=== PATIENT | female | born 1965 | race Caucasian/White ===

== ENCOUNTER → 2016-08-18 | Outpatient (CLI) | payer OTHER ==
--- NOTE | 2016-08-18 09:39 | DX ---
Right Elbow, 3 Views Indication: Pain since June. Findings: The bones are anatomically aligned. No fracture, bone lesion, effusion, or joint space ab normality. No marginal erosions or osteophytes. Impression: Normal. No fracture, effusion, or arthropathy.
== END ==
LOC: BMCIMAGING 09:13
PROVIDERS: ATTEND Family Medicine
DX: M25.521 Pain in right elbow (principal)

== ENCOUNTER → 2016-12-03 | Outpatient (CLI) | payer OTHER | LOC: FIMAGING 10:52 | PROVIDERS: ATTEND Obstetrics & Gynecology | DX: Z12.31 Encounter for screening mammogram for malignant neoplasm of breast (principal) | CPT/HCPCS: G0202 ==

== ENCOUNTER → 2017-01-05 | Outpatient (CLI) | payer OTHER | LOC: FIMAGING 12:03 | PROVIDERS: ATTEND Physician Assistant | DX: R10.13 Epigastric pain (principal); R93.2 Abnormal findings on diagnostic imaging of liver and biliary tract ==

== ENCOUNTER → 2017-11-23 | Outpatient (CLI) | payer OTHER | LOC: FIMAGING 15:19 | PROVIDERS: ATTEND Obstetrics & Gynecology | DX: Z12.31 Encounter for screening mammogram for malignant neoplasm of breast (principal) ==

== ENCOUNTER → 2018-09-06 | Outpatient (CLI) | payer OTHER | LOC: BMCIMAGING 11:43 | PROVIDERS: ATTEND Physician Assistant | DX: R06.02 Shortness of breath (principal); R00.2 Palpitations; R07.89 Other chest pain ==

== ENCOUNTER → 2018-09-07 | Outpatient (CLI) | payer OTHER | LOC: BMCIMAGING 07:15 | PROVIDERS: ATTEND Physician Assistant | DX: R10.2 Pelvic and perineal pain (principal) ==

== ENCOUNTER → 2018-10-12 | Outpatient (CLI) | payer OTHER | LOC: BMCIMAGING 10:31 | PROVIDERS: ATTEND Family Medicine | DX: M79.89 Other specified soft tissue disorders (principal) ==

== ENCOUNTER → 2018-12-01 | Outpatient (CLI) | payer OTHER | LOC: FIMAGING 12:02 | PROVIDERS: ATTEND Midwife | DX: Z12.31 Encounter for screening mammogram for malignant neoplasm of breast (principal); R10.31 Right lower quadrant pain; R31.9 Hematuria, unspecified ==